=== PATIENT | female | born 1950 | race Caucasian/White ===

== ENCOUNTER 2021-08-25 13:04 | Emergency (ER) | payer OTHER ==
[~2021-08-25] VITALS: Ht 167.6 cm; Wt 70.0 kg
[2021-08-25 13:33] LABS: URINE BILIRUBIN - DIPSTICK NEGATIVE (NEGATIVE); URINE BLOOD DIPSTICK LARGE (NEGATIVE); URINE COLOR YELLOW; URINE GLUCOSE - DIPSTICK NEGATIVE (NEGATIVE); URINE KETONE NEGATIVE (NEGATIVE); URINE PH 5.5 (4.5-8.0); URINE PROTEIN - DIPSTICK NEGATIVE (NEG-TRACE); URINE SPECIFIC GRAVITY 1.025; URINE UROBILINOGEN - DIPSTICK 0.2 E.U./dL (0.2)
[2021-08-25 13:34] LABS: URINE LEUK ESTERASE MODERATE (NEGATIVE); URINE NITRITE - DIPSTICK POSITIVE (Negative)
[2021-08-25 13:57] LABS: URINE BACTERIA FEW hpf; URINE WBC 20-50 WBC/hpf (0-5)
[2021-08-25] MEDS ORDERED: OMNI-PAC300 MG PO (15:24)
[2021-08-25 15:32] VITALS: BP 155/77
== END 2021-08-25 15:35 | disposition home or self-care (01) | DRG 690 ==
LOC: ED 13:04
PROVIDERS: Family Medicine
DX: N39.0 Urinary tract infection, site not specified (principal); B96.20 Unspecified Escherichia coli [E. coli] as the cause of diseases classified elsewhere; I10 Essential (primary) hypertension; Z87.440 Personal history of urinary (tract) infections